=== PATIENT | female | born 1985 | race Asian ===

== ENCOUNTER 2016-05-02 12:53 | Outpatient (CLI) | payer OTHER ==
[~2016-05-02 12:53] MED LIST: AQUAPHOR EX; LISITAB PO
[2016-05-02 13:30] LABS: PLATELET COUNT 249 K/uL (152-353)
[2016-05-02 13:53] LABS: POTASSIUM 3.6 mmol/L (3.6-5.2); SODIUM 133 mmol/L (136-145)
== END 2016-05-02 19:32 | disposition home or self-care (01) ==
LOC: LABW 12:53
PROVIDERS: Family Medicine
DX: R30.0 Dysuria (principal); I10 Essential (primary) hypertension; N91.1 Secondary amenorrhea; E66.8 Other obesity
CPT/HCPCS: 36415; 80053; 81000; 81025; 84439; 84443; 85027

== ENCOUNTER 2016-05-10 14:37 | Outpatient (CLI) | payer OTHER | END 2016-05-10 19:21 | disposition home or self-care (01) | LOC: LAB 14:37 | DX: A59.01 Trichomonal vulvovaginitis (principal); R10.2 Pelvic and perineal pain; N39.0 Urinary tract infection, site not specified | CPT/HCPCS: 87490; 87590 ==

== ENCOUNTER 2017-02-16 20:15 | Emergency (ER) | payer OTHER ==
[~2017-02-16] VITALS: Ht 162.6 cm; Wt 95.3 kg
[2017-02-16 20:20] VITALS: TEMP 98.5
[2017-02-16 20:54] LABS: PLATELET COUNT 226 K/uL (152-353)
[2017-02-16 21:03] LABS: POTASSIUM 3.5 mmol/L (3.6-5.2); SODIUM 140 mmol/L (136-145)
[2017-02-16 21:26] LABS: PARTIAL THROMBOPLASTIN TIME 22.5 SECONDS (24.5-33.6)
[2017-02-16 22:26] VITALS: BP 160/99
== END 2017-02-16 22:37 | disposition home or self-care (01) ==
LOC: ED 20:15
DX: R07.89 Other chest pain (principal); R06.09 Other forms of dyspnea; R94.31 Abnormal electrocardiogram [ECG] [EKG]; I10 Essential (primary) hypertension
CPT/HCPCS: 36415; 80053; 82550; 82553; 84484; 85027; 85610; 85730; 93005; 99284

== ENCOUNTER 2017-03-02 12:02 | Emergency (ER) | payer OTHER ==
[~2017-03-02] VITALS: Ht 162.6 cm; Wt 95.3 kg
[2017-03-02 12:08] VITALS: TEMP 97.8
[2017-03-02 13:14] LABS: PLATELET COUNT 230 K/uL (152-353)
[2017-03-02 13:24] VITALS: BP 171/96
[2017-03-02 13:33] LABS: POTASSIUM 3.2 mmol/L (3.6-5.2); SODIUM 139 mmol/L (136-145)
== END 2017-03-02 13:24 | disposition home or self-care (01) ==
LOC: ED 12:02
DX: I10 Essential (primary) hypertension (principal); R51 Headache; J31.0 Chronic rhinitis; E66.8 Other obesity
CPT/HCPCS: 80053; 85027; 99283

== ENCOUNTER 2017-04-01 18:33 | Emergency (ER) | payer OTHER ==
[~2017-04-01] VITALS: Ht 162.6 cm; Wt 99.8 kg
[2017-04-01 19:20] VITALS: BP 186/96; TEMP 97.3
== END 2017-04-01 19:50 | disposition home or self-care (01) ==
LOC: ED 18:33
DX: R51 Headache (principal)
CPT/HCPCS: 99281

== ENCOUNTER 2017-08-26 02:56 | Emergency (ER) | payer OTHER ==
[~2017-08-26] VITALS: Ht 162.6 cm; Wt 99.8 kg
[2017-08-26 03:58] LABS: PLATELET COUNT 256 K/uL (152-353)
[2017-08-26 04:21] LABS: POTASSIUM 3.9 mmol/L (3.6-5.2)
[2017-08-26 04:34] VITALS: BP 178/88; TEMP 98.1
== END 2017-08-26 04:35 | disposition home or self-care (01) ==
LOC: ED 02:56
PROVIDERS: Specialist
DX: K52.89 Other specified noninfective gastroenteritis and colitis (principal)
CPT/HCPCS: 36415; 80048; 81000; 85027; 99283

== ENCOUNTER 2018-03-01 18:38 | Observation (INO) | payer OTHER ==
[~2018-03-01] VITALS: Ht 162.6 cm; Wt 108.9 kg
[2018-03-01 18:46] VITALS: TEMP 97.3
[2018-03-01 18:49] VITALS: BP 211/120
[2018-03-01 19:20] VITALS: BP 185/121
[2018-03-01 19:55] LABS: PLATELET COUNT 252 K/uL (152-353)
[2018-03-01 20:06] LABS: POTASSIUM 3.5 mmol/L (3.6-5.2); SODIUM 139 mmol/L (136-145)
[2018-03-02 02:09] VITALS: BP 118/74; TEMP 98; Ht 162.6 cm; Wt 108.9 kg
[2018-03-02 04:03] VITALS: BP 118/74; TEMP 98
[2018-03-02 08:03] VITALS: BP 140/49; TEMP 98.6
[2018-03-02] MEDS ORDERED: LISITAB PO (10:37)
== END 2018-03-02 14:40 | disposition home or self-care (01) ==
LOC: ED 18:38 → MED/SURG 20:50
PROVIDERS: ADMIT Family Medicine
DX: R07.9 Chest pain, unspecified (principal); I10 Essential (primary) hypertension; E66.01 Morbid (severe) obesity due to excess calories; Z68.41 Body mass index [BMI] 40.0-44.9, adult
CPT/HCPCS: 36415; 36591; 80053; 80061; 82550; 82553; 83880; 84484; 85027; 85379; 93005; 99220; 99283; G0378; J1650

== ENCOUNTER 2018-04-19 02:54 | Emergency (ER) | payer OTHER ==
[~2018-04-19] VITALS: Ht 162.6 cm; Wt 108.9 kg
[2018-04-19 04:40] VITALS: BP 153/99; TEMP 98.5
== END 2018-04-19 04:40 | disposition home or self-care (01) ==
LOC: ED 02:54
DX: M25.561 Pain in right knee (principal); M17.11 Unilateral primary osteoarthritis, right knee; I10 Essential (primary) hypertension
CPT/HCPCS: 99283

== ENCOUNTER 2018-04-23 00:51 | Outpatient (CLI) | payer OTHER ==
[2018-04-23] MEDS ORDERED: TRAMADOL HYDROC50 MG PO (01:14)
== END 2018-04-23 00:55 | disposition short-term general hospital (02) ==
LOC: AMB 00:51
DX: R10.13 Epigastric pain (principal)
CPT/HCPCS: A0425; A0427

== ENCOUNTER 2018-04-23 00:59 | Emergency (ER) | payer OTHER ==
[~2018-04-23] VITALS: Ht 162.6 cm; Wt 99.8 kg
[2018-04-23] MEDS ORDERED: TRAMADOL HYDROC50 MG PO (01:14)
[2018-04-23 02:11] LABS: PLATELET COUNT 278 K/uL (152-353)
[2018-04-23 03:11] LABS: POTASSIUM 3.2 mmol/L (3.6-5.2)
[2018-04-23 04:48] VITALS: TEMP 96.8
[2018-04-23 06:10] VITALS: BP 172/108
== END 2018-04-23 06:13 | disposition home or self-care (01) ==
LOC: ED 00:59
PROVIDERS: Internal Medicine
DX: K82.8 Other specified diseases of gallbladder (principal); R10.11 Right upper quadrant pain; E87.6 Hypokalemia
CPT/HCPCS: 36415; 80053; 81000; 82150; 85027; 99283; J2405; Q9963

== ENCOUNTER 2019-01-19 09:05 | Emergency (ER) | payer OTHER ==
[~2019-01-19] VITALS: Ht 162.6 cm; Wt 99.8 kg
[2019-01-19 09:05] VITALS: TEMP 99
[~2019-01-19 09:05] MED LIST changes: +TRAMADOL HYDROC50 MG PO
[2019-01-19 11:12] VITALS: BP 154/69
== END 2019-01-19 11:12 | disposition home or self-care (01) ==
LOC: ED 09:05
PROC: 2W3MX1Z Immobilization of Left Lower Extremity using Splint (ICD-10-PCS; principal; 2019-01-19)
DX: M25.562 Pain in left knee (principal)
CPT/HCPCS: 99283

== ENCOUNTER 2019-04-17 11:11 | Emergency (ER) | payer OTHER ==
[~2019-04-17] VITALS: Ht 162.6 cm; Wt 106.6 kg
[2019-04-17 11:21] VITALS: BP 140/78; TEMP 97.7
[2019-04-17 12:23] LABS: POTASSIUM 3.6 mmol/L (3.6-5.2)
[2019-04-17 12:27] LABS: PLATELET COUNT 191 K/uL (152-353)
== END 2019-04-17 14:04 | disposition home or self-care (01) ==
LOC: ED 11:11
PROVIDERS: Family Medicine
DX: J10.1 Influenza due to other identified influenza virus with other respiratory manifestations (principal)
CPT/HCPCS: 36415; 80053; 85027; 87502; 87651; 99283; 99284

== ENCOUNTER 2020-05-02 18:25 | Outpatient (CLI) | payer OTHER | END 2020-05-02 20:53 | disposition home or self-care (01) | LOC: LAB 18:25 | PROVIDERS: ATTEND Internal Medicine | DX: L02.93 Carbuncle, unspecified (principal) | CPT/HCPCS: 87070 ==

== ENCOUNTER 2020-05-14 17:15 | Emergency (ER) | payer OTHER ==
[~2020-05-14] VITALS: Ht 162.6 cm; Wt 106.6 kg
[2020-05-14 17:15] VITALS: TEMP 98.7
[2020-05-14 18:30] LABS: PLATELET COUNT 245 K/uL (152-353)
[2020-05-14 18:34] LABS: POTASSIUM 3.3 mmol/L (3.6-5.2); SODIUM 141 mmol/L (136-145)
[2020-05-14 19:23] VITALS: BP 169/101
== END 2020-05-14 19:29 | disposition home or self-care (01) ==
LOC: ED 17:16
PROVIDERS: Family Medicine
DX: I10 Essential (primary) hypertension (principal)
CPT/HCPCS: 80053; 82550; 82553; 84484; 85027; 93005; 99283

== ENCOUNTER 2021-12-11 13:46 | Outpatient (CLI) | payer OTHER ==
[2021-12-11 14:30] LABS: PLATELET COUNT 238 K/uL (152-353)
== END 2021-12-11 18:56 | disposition home or self-care (01) ==
LOC: LAB 13:46
PROVIDERS: ATTEND Internal Medicine
DX: I10 Essential (primary) hypertension (principal)
CPT/HCPCS: 80053; 80061; 81002; 81015; 84439; 84443; 85027

== ENCOUNTER 2022-01-18 18:26 | Emergency (ER) | payer OTHER | END 2022-01-18 19:01 | disposition home or self-care (01) | LOC: ED 18:26 | DX: Z53.21 Procedure and treatment not carried out due to patient leaving prior to being seen by health care provider (principal) | CPT/HCPCS: 99283 ==

== ENCOUNTER 2023-05-21 12:24 | Outpatient (CLI) | payer OTHER ==
[~2023-05-21 12:24] MED LIST changes: +KETOROLAC10 MG PO; +ONDA4TAB3 PO
[2023-05-21 14:03] LABS: PLATELET COUNT 243 K/uL (152-353)
[2023-05-21 14:14] LABS: POTASSIUM 3.4 mmol/L (3.6-5.2)
== END 2023-05-21 19:30 | disposition home or self-care (01) ==
LOC: LAB 12:24
PROVIDERS: ATTEND Internal Medicine
DX: I10 Essential (primary) hypertension (principal)
CPT/HCPCS: 80053; 80061; 81000; 85027